=== PATIENT | female | born 1950 | race Two or more races ===

== ENCOUNTER 2020-04-09 05:53 | Day surgery (SDC) | payer OTHER ==
[~2020-04-09 05:53] MED LIST: AMBIEN10 MG PO; ASPIR 8181 MG PO; ATORVASTATIN CA10 MG PO; COZAAR50 MG PO; GABAPENTIN PO; NEURO PO; SYNTHROID50 MCG PO; TOPROL XL25 M1 PO
[2020-04-09] MEDS ORDERED: NEURONTIN300 MG PO (08:55)
[2020-04-09] MEDS ORDERED: ULTRACET PO (08:55)
== END 2020-04-09 13:45 | disposition home or self-care (01) ==
LOC: CIR.AMB 05:53 → EDSTATUS 11:15 → SURH 11:15 → CIR.AMB 11:15
PROVIDERS: ATTEND Surgery
DX: K62.0 Anal polyp (principal); K64.8 Other hemorrhoids; K64.4 Residual hemorrhoidal skin tags; K62.2 Anal prolapse; Z20.828 Contact with and (suspected) exposure to other viral communicable diseases

== ENCOUNTER 2021-10-19 06:05 | Day surgery (SDC) | payer OTHER ==
[~2021-10-19 06:05] MED LIST changes: +BRILINTA60 MG PO; +NEURONTIN300 MG PO; +TOPROL XL50 M1 PO; +ULTRACET PO
[2021-10-19] MEDS ORDERED: NEURONTIN300 MG PO (13:07)
[2021-10-19] MEDS ORDERED: KETO10TA2 PO (13:07)
[2021-10-19] MEDS ORDERED: DERMOPLAST PAIN78 GM TOP (13:08)
== END 2021-10-19 16:18 | disposition home or self-care (01) ==
LOC: CIR.AMB 06:05
PROVIDERS: ATTEND Surgery
DX: K62.0 Anal polyp (principal); K64.8 Other hemorrhoids; K62.2 Anal prolapse; N81.6 Rectocele; Z20.822 Contact with and (suspected) exposure to COVID-19